=== PATIENT | female | born 1985 | race Caucasian/White ===

== ENCOUNTER 2020-09-24 09:20 | Inpatient (IN) | payer OTHER ==
[~2020-09-24 09:20] MED LIST: COLACE 2-IN-11 EACH PO; TRESIBA FL100 UNIT/1 IJ
[2020-09-24 10:09] LABS: BASOPHIL 0.4 % (0-2); EOSINOPHIL 0 % (0-5); HCT 41.3 % (37.0-47.0); HGB 12.9 g/dl (12.5-16.0); LYMPHOCYTE 25.1 % (15-48); MCH 26.5 pg (25.0-31.0); MCHC 31.2 g/dL (32.0-36.0); MCV 84.8 fL (78.0-100.0); MONOCYTE 4.8 % (0-12); MPV 11.2 fL (6.0-9.5); NEUTROPHIL 69.4 % (41-80); NRBC 0; PLT 394 K/uL (150-400); RBC 4.87 M/uL (4.20-5.40); RDW 15.6 % (11.5-14.0); WBC 11.9 K/uL (4.0-10.5)
[2020-09-24 10:41] LABS: ALBUMIN 3.8 g/dL (3.4-5.0); BILIRUBIN - TOTAL 0.7 mg/dL (0.2-1.0); BUN/CREAT RATIO (CALC) 24.6 RATIO; CREATININE 0.61 mg/dL (0.51-0.95); GLOBULIN (CALCULATION) 4.5 g/dL; POTASSIUM 4.3 mmol/L (3.5-5.1); TOTAL PROTEIN 8.3 g/dL (6.4-8.2)
[2020-09-24 10:43] LABS: BILIRUBIN NEGATIVE (NEGATIVE); BLOOD NEGATIVE Ery/uL (NEGATIVE); CLARITY CLEAR (CLEAR); COLOR YELLOW (YELLOW); GLUCOSE (U) 3+ mg/dL (NORMAL); LEUKOCYTES NEGATIVE Leu/uL (NEGATIVE); NITRITE NEGATIVE (NEGATIVE); PROTEIN NEGATIVE (NEGATIVE); UROBILINOGEN 0.2 mg/dL (0.2-1.0); pH 5.5 (5.0-9.0)
[2020-09-24 13:30] LABS: BILIRUBIN - DIRECT 0.3 mg/dL (0.00-0.20); BILIRUBIN - TOTAL 0.7 mg/dL (0.2-1.0)
[2020-09-24] MEDS ORDERED: BUPRENORPHIN-N1 EACH SL (14:37)
[2020-09-24] MEDS ORDERED: FEOSOL325 MG PO (14:39)
[2020-09-24] MEDS ORDERED: INSULIN LI100 UNIT/4 IM (14:46)
[2020-09-25 04:46] LABS: HCT 31.5 % (37.0-47.0); HGB 9.9 g/dl (12.5-16.0); MCHC 31.4 g/dL (32.0-36.0); MCV 85.8 fL (78.0-100.0); MPV 11.6 fL (6.0-9.5); RBC 3.67 M/uL (4.20-5.40); RDW 15.5 % (11.5-14.0); WBC 8.7 K/uL (4.0-10.5)
[2020-09-25 05:00] LABS: CREATININE 0.6 mg/dL (0.51-0.95); POTASSIUM 3.7 mmol/L (3.5-5.1)
[2020-09-25] MEDS ORDERED: TRESIBA FL100 UNIT/1 IJ (08:43)
[2020-09-25] MEDS ORDERED: NICOTINE PATCH1 EAC2 TD (08:52)
--- NOTE | 2020-09-26 09:17 | NUR ---
TOM JEFFERSON - Sep 25, 2020 - 10:35am: SPOKE WITH PATIENT THIS MORNING- SHE WAS RESTING IN BED. SAID THE HAS NOT POA OR LIVING WILL, SHE LIVES WITH HER SISTER AND IS INDEPENDENT.
== END 2020-09-25 11:26 | disposition home or self-care (01) | DRG 638 ==
LOC: FER 09:20 → FTCU 12:20
PROVIDERS: Emergency Medicine; ADMIT Hospitalist
DX: E10.65 Type 1 diabetes mellitus with hyperglycemia (principal); F11.20 Opioid dependence, uncomplicated; E87.0 Hyperosmolality and hypernatremia; D50.9 Iron deficiency anemia, unspecified; G89.29 Other chronic pain; M54.9 Dorsalgia, unspecified; F17.210 Nicotine dependence, cigarettes, uncomplicated; Z79.4 Long term (current) use of insulin; Z88.0 Allergy status to penicillin; Z20.822 Contact with and (suspected) exposure to COVID-19
CPT/HCPCS: 36415; 76705; 80048; 80053; 80076; 81003; 82962; 83690; 84703; 85025; J1650; J2405; J2765; J7030; J7040; U0002